=== PATIENT | female | born 1970 | race Caucasian/White ===

== ENCOUNTER 2024-11-15 05:37 | Observation (INO) | payer BC ==
[~2024-11-15] VITALS: Ht 172.7 cm; Wt 91.7 kg
[~2024-11-15 05:37] MED LIST: DAILY VITE1 EAC1 PO; LISINOPRIL-HCT1 EAC2 PO; ZYRTEC10 MG PO
[2024-11-15 06:14] LABS: BASOPHILS 0.7 % (0-2); HEMATOCRIT 40.8 % (35.0-50.0); HEMOGLOBIN 14.1 g/dL (12.0-18.0); LYMPHOCYTES 11.8 % (24-44); MCH 30.6 (27-36); MCHC 34.7 g/dl (30-36); MCV 88.3 fl (81-99); MONOCYTES 7.2 % (0-12); NEUTROPHILS 77.3 % (39-80); PLATELET COUNT 237 K/uL (140-440); RBC 4.62 M/ul (4.3-5.7); RDW 13.5 (10.5-15.0)
[2024-11-15] MEDS ORDERED: MORPHINE SULFATE 4 MG/ML VIAL IV ONE (06:15)
[2024-11-15] MEDS ORDERED: FAMOTIDINE 20 MG/ 2 ML VIAL IV ONE (06:15)
[2024-11-15] MEDS ORDERED: LACTATED RINGER'S 1,000 ML IV SCH (06:30)
[2024-11-15 06:37] LABS: ALBUMIN 3.6 g/dL (3.4-5.0); ALBUMIN/GLOBULIN RATIO 1.16 (1.1-2.4); ANION GAP 10.7 (7-21); BILIRUBIN, TOTAL 0.7 mg/dL (0.2-1.0); BUN/CREATININE RATIO 17.17 (6.0-28.6); CALCIUM 9.2 mg/dL (8.5-10.1); CREATININE, SERUM 0.99 mg/dL (0.55-1.02); MAGNESIUM 1.9 mg/dL (1.8-2.4); POTASSIUM 3.7 mmol/L (3.5-5.1); PROTEIN, TOTAL 6.7 g/dL (6.4-8.2)
[2024-11-15 06:45] LABS: INR 1.01 (0.80-1.30); PROTIME 12.9 Sec (11.2-14.2)
[2024-11-15 06:47] LABS: PARTIAL THROMBOPLASTIN TIME 29.4 Sec (22.9-41.3)
[2024-11-15] MEDS ORDERED: levoFLOXacin 500 MG PIGGYBACK IV ONE (07:45)
[2024-11-15] MEDS ORDERED: LIDOCAINE HCL 2% 5 ML SDV ONE (08:23)
[2024-11-15] MEDS ORDERED: propofoL 200 MG/20 ML VIAL ONE (08:23)
[2024-11-15] MEDS ORDERED: KETOROLAC TROMETHAMINE 30 MG/ML VIAL ONE (08:23)
[2024-11-15] MEDS ORDERED: SUGAMMADEX SODIUM 200 MG/2 ML ML ONE (08:23)
[2024-11-15] MEDS ORDERED: ROCURONIUM BROMIDE 50 MG/5 ML SYR ONE (08:23)
[2024-11-15] MEDS ORDERED: ACETAMINOPHEN 1,000 MG/100 ML VIAL ONE (08:23)
[2024-11-15] MEDS ORDERED: fentaNYL citrate 100 MCG/2 ML VIAL ONE (08:23)
[2024-11-15] MEDS ORDERED: ondansetron HCL 4 MG/2 ML VIAL ONE (08:23)
[2024-11-15] MEDS ORDERED: SUCCINYLCHOLINE IN 0.9% NACL 200 MG/10 ML SYRINGE ONE (08:23)
[2024-11-15] MEDS ORDERED: DEXAMETHASONE SOD PHOS 4 MG/ML VIAL ONE (08:23)
[2024-11-15] MEDS ORDERED: MIDAZOLAM HCL 2 MG/2 ML VIAL ONE (08:24)
[2024-11-15] MEDS ORDERED: dexmedeTOMIDine HCl 200 MCG/2 ML VIAL ONE (08:25)
[2024-11-15] MEDS ORDERED: LIDOCAINE HCL 2% 20 MG/ML VIAL INJ ONE (08:25)
[2024-11-15] MEDS ORDERED: KETAMINE in NS 50 MG/5 ML SYR ONE (08:25)
[2024-11-15] MEDS ORDERED: LACTATED RINGER'S 1,000 ML IV ONE (09:23)
[2024-11-15] MEDS ORDERED: SEVOFLURANE 250 ML BTL INH ONE (09:24)
[2024-11-15] MEDS ORDERED: PHENYLEPHRINE HCL 10 MG/ML VIAL ONE (09:24)
[2024-11-15] MEDS ORDERED: PROCHLORPERAZINE EDISYLATE 10 MG/2 ML VIAL IV PRN ×6 (10:15→11:00)
[2024-11-15] MEDS ORDERED: HYDROmorphone HCL 1 MG/ML SYR IV PRN ×2 (10:15→11:00)
[2024-11-15] MEDS ORDERED: ondansetron HCL 4 MG/2 ML VIAL IV PRN ×6 (10:15→11:00)
[2024-11-15] MEDS ORDERED: fentaNYL citrate 50 MCG/ML SDV IV PRN ×2 (10:15→11:00)
[2024-11-15] MEDS ORDERED: droPERidol 5 MG/2 ML VIAL IV PRN ×2 (10:15→11:00)
[2024-11-15] MEDS ORDERED: NALOXONE HCL 0.4 MG SYR IV PRN ×2 (10:15→11:00)
[2024-11-15] MEDS ORDERED: IBLOOD GLUCOSE TEST STRIP 1 EA TEST VI PRN ×2 (10:15→11:00)
--- NOTE | 2024-11-15 10:18 | NUR ---
11/15/24 1018 Belem Méndez 1001-PT ARRIVES TO PACU ON 8L VIA MASK. PT IS NONAROUSABLE TO TACTILE STIMULI. RESP EVEN AND UNLABORED. 1004-JAW THRUST BEING DONE BY [employer]. 1008-PT RESPONDS TO VERBAL SIMTULI. JAW THRUST COMPLETE. O2 AT 8L VIA MASK. RESP EVEN AND UNLABORED. 1012-PT OPENS EYES. SHAKES HEAD NO WHEN ASKED ABOUT PAIN AND NAUSEA. RESP EVEN AND UNLABORED. 8L VIA MASK. HOB ELEVATED. PT FALLS BACK TO SLEEP EASILY.
[2024-11-15] MEDS ORDERED: ACETAMINOPHEN 650 MG SUPP PR PRN ×4 (10:30→11:00)
[2024-11-15] MEDS ORDERED: DEXTROSE 5% - LACTATED RINGERS 1,000 ML IV SCH ×4 (10:30→11:00)
[2024-11-15] MEDS ORDERED: ACETAMINOPHEN 325 MG TAB PO PRN ×4 (10:30→11:00)
[2024-11-15 10:42] VITALS: BP 96/70
--- NOTE | 2024-11-15 10:42 | NUR ---
PT TO ROOOM 109 VIA BED BY PAULINO HORTON FROM PACU. PT AWAKE, ALERT, AND ORIENTED. PT HAS 5 LAP SITES TO ABD WITH BANDAIDS CDI. PT RATES PAIN TO ABD 2/10 AND STATES IS TOLERABLE AT THIS TIME. PT PLACED ON CPOX PER POLICY. ESTEPHANIE IN TOOM. ROOM ORIENTATION COMPLETE. CALL LIGHT WITHIN REACH. REPORT RECEIVED FROM PAULINO HORTON.
[2024-11-15] MEDS ORDERED: MORPHINE SULFATE 4 MG/ML VIAL IV PRN ×4 (10:45→11:00)
[2024-11-15] MEDS ORDERED: OXYCODONE HCL 5 MG TAB PO PRN ×4 (10:45→11:00)
--- NOTE | 2024-11-15 11:05 | NUR ---
MD GIVES VERBAL ORDER TO SALINE LOCK PATIENT AT THIS TIME. ORDER PLACED.
[2024-11-15 11:45] VITALS: BP 108/61
--- NOTE | 2024-11-15 11:47 | NUR ---
PT RESTING IN BED WATCHING TV, RATES PAIN TO ABD 2/10 AND STATES IS TOLERABLE AT THIS TIME. BANDAIDS TO 5 LAP SITES CDI. IN ROOM. CALL LIGHT WITHIN REACH. NO REQUESTS AT THIS TIME.
--- NOTE | 2024-11-15 12:28 | NUR ---
MED REC COMPLETE
[2024-11-15 13:10] VITALS: BP 117/65
[2024-11-15 13:14] VITALS: BP 117/65
--- NOTE | 2024-11-15 13:14 | NUR ---
PT UP TO RESTROOM WITH SBA, STEADY ON FEET. BACK TO BED AFTER RESTROOM, VISITOR AT THE BEDSIDE.
[2024-11-15 13:47] VITALS: BP 113/74
--- NOTE | 2024-11-15 14:09 | NUR ---
FINAL SET OF POST-SURGICAL VITALS OBTAINED AND RECORDED. I&Os ALSO RECORDED. PATIENT AMBULATES FOUR LAPS IN THE HALLS WITH SUPERVISION ONLY, TOLERATES WELL. PATIENT HAS NO COMPLAINTS OF NAUSEA. REPORTS MILD PAIN, 3/10. PRN TYLENOL ADMINISTERED AND PATIENT HAS ICE PACK HELD ON HER ABDOMEN. PATIENT CLEARED TO BE INDEPENDENT IN HER ROOM AFTER STEADY AMBULATION IN THE HALLS. ENCOURAGED TO CALL IF SHE NEEDS ANYTHING. ALL 5 LAP SITES REMAIN C/D/I. PATIENT HAS NO OTHER REQUESTS, CALL LIGHT AND PERSONAL BELONGINGS IN REACH.
[2024-11-15] MEDS ORDERED: OXYCODONE HCL5 MG PO (15:07)
[2024-11-16] MEDS ORDERED: PANTOPRAZOLE SODIUM 40 MG/10 ML VIAL IV SCH ×4 (09:00)
--- NOTE | 2024-11-25 09:06 | PATH ---
[facility] [address] [place] [address] Signed THIS IS AN AMENDED REPORT SPECIMEN(S): A GALLBLADDER AND STONES SPECIMEN SOURCE: A. GALLBLADDER AND STONES CLINICAL HISTORY: Calculus cholecystitis REASON FOR AMENDMENT: This amended report is issued to correct the referring provider and delivery location. Originally reported as Dahlia Bolaños MD at [facility]; amended to Gosia Fox MD at [facility]. The diagnostic results remain unchanged. (11/23/2024) FINAL PATHOLOGIC DIAGNOSIS: Gallbladder, cholecystectomy: - Chronic calculous cholecystitis - One reactive lymph node BRP MICROSCOPIC EXAMINATION: Histologic sections of all submitted blocks are examined by light microscopy. These findings, together with the gross examination, support the pathologic diagnosis. GROSS DESCRIPTION: The specimen, labeled and designated "Palak TeresaNellie, gallbladder and stones per requisition," is received in formalin and consists of Specimen: Surgically disrupted gallbladder. Dimensions: 8.7 x 3.2 x 2.1 cm. Serosa: Elizabeth-pink and smooth. Cystic Duct: Unobstructed. Calculi: Present�yellow and botryoid to green and rounded. Mucosa: Elizabeth and velvety. Wall thickness: 0.3 cm. Lymph node: No pericystic lymph nodes are grossly identified. Additional: None. Disease Case Manager sections are submitted in (A1). AA (under the direct supervision of a pathologist) PATIENT NAME: EVON VILLAR PATHOLOGY DATE OF : 72 REPORT #: [id number] PHYSICIAN: KALEIGHKuaiyong SIMONE PCP: GERRY PIKE MD REPORT IS CONFIDENTIAL AND NOT TO BE RELEASED WITHOUT AUTHORIZATION [facility] [address] [facility] [place], [place] [address] Signed The Gross Description was prepared using a voice recognition system. The report was reviewed for accuracy; however, sound-alike word errors, addition and/or deletions may occur. If there is any question about this report, please contact Client Services. ADDITIONAL NOTES: Immunohistochemical and/or in situ hybridization studies if performed in this case included appropriate positive controls that reacted as expected. This test was developed and its performance characteristics determined by [facility]. It has not been cleared or approved by the U.S. Food and Drug Administration. The FDA has determined that such clearance or approval is not necessary. This test is used for clinical purposes. It should not be regarded as investigational or for research. [facility] is certified under the Clinical Laboratory Improvement Amendments of 1988 (CLIA) as qualified to perform high complexity clinical laboratory testing. PERFORMING LABORATORY: Technical component was performed by [facility], [address] [place] [id number] (CLIA# [id number]). Professional interpretation was performed by [facility], [address] [place] [id number] (CLIA#: [id number]). Diagnostician: Oscar Méndez MD Pathologist Diagnostician: Carolyne Durham MD Pathologist Electronically Signed 11/25/2024 Copies: ~ PATIENT NAME: EVON VILLAR PATHOLOGY DATE OF : 72 REPORT #: [id number] PHYSICIAN: VINAYAK PATHOLOGY PCP: GERRY PIKE MD REPORT IS CONFIDENTIAL AND NOT TO BE RELEASED WITHOUT AUTHORIZATION
== END 2024-11-15 16:05 | disposition home or self-care (01) ==
LOC: ED 05:37 → MS 05:39 → ED 07:51 → DS 07:51 → MS 16:05
PROVIDERS: Internal Medicine; ADMIT Surgery; ATTEND Surgery
DX: K80.12 Calculus of gallbladder with acute and chronic cholecystitis without obstruction (principal); K82.1 Hydrops of gallbladder; I10 Essential (primary) hypertension; Z88.0 Allergy status to penicillin; Z88.1 Allergy status to other antibiotic agents; Z79.899 Other long term (current) drug therapy
CPT/HCPCS: 00790; 36415; 80053; 83690; 83735; 85025; 85610; 85730; 94762; A9270; J0131; J0330; J1100; J1885; J1956; J2003; J2250; J2270; J2371; J2405; J2704; J3010; J3490; J7121

== ENCOUNTER 2024-12-23 06:49 | Day surgery (SDC) | payer BC ==
[2024-10-09 10:32] VITALS: BP 122/85
[2024-12-15 10:20] VITALS: BP 130/90
[~2024-12-23] VITALS: Ht 172.7 cm; Wt 89.0 kg
[~2024-12-23 06:49] MED LIST changes: +FLONASE ALLERG9.9 ML NAS; +LACTATED RINGER'S 1,000 ML IV SCH; +OXYCODONE HCL5 MG PO
[2024-12-23] MEDS ORDERED: LIDOCAINE HCL 1% 5 ML SDV INJ ONE (07:00)
[2024-12-23] MEDS ORDERED: IBLOOD GLUCOSE TEST STRIP 1 EA TEST VI PRN (07:00)
[2024-12-23 07:07] VITALS: BP 125/88
[2024-12-23] MEDS ORDERED: propofoL 200 MG/20 ML VIAL ONE (07:51)
[2024-12-23] MEDS ORDERED: LIDOCAINE HCL 2% 5 ML SDV ONE (07:51)
--- NOTE | 2024-12-23 09:14 | NUR ---
12/23/24 0914 Rosalie Fernandez 0957-PATIENT ARRIVED TO PACU ON RA RR EVEN. NONAROUSABLE LAYING LEFT LATERAL. IVF INFUSING. SR HR 70'S. ABDOMEN SOFT.
[2024-12-23 09:37] VITALS: BP 127/80
--- NOTE | 2024-12-24 11:08 | OR ---
[facility] [address] [place], [place] [address] Signed DATE OF OPERATION: 12/23/2024 SURGEON: Estephanie Campos DO PREOPERATIVE DIAGNOSIS: Colon cancer screening. POSTOPERATIVE DIAGNOSES: 1. Colon cancer screening with flat sessile polyps at 20 cm and 40 cm. 2. Diverticulosis of the sigmoid colon. PROCEDURE PERFORMED: Colonoscopy with biopsies of polyps at 20 and 40 cm. ANESTHESIA: IV sedation. ESTIMATED BLOOD LOSS: None. DRAINS: None. COMPLICATIONS: None. DESCRIPTION OF PROCEDURE: The patient was brought to the GI lab, placed in supine position. After induction of IV sedation by Anesthesia, the patient was placed in left lateral position and prepared for colonoscopy. Digital rectal exam was performed, essentially unremarkable. The Olympus video colonoscope was then introduced into the rectosigmoid directing through the length of the sigmoid, descending colon past the splenic flexure, transverse colon past the hepatic flexure into the ascending colon and the cecum. General exploration was then carried out as the colon was insufflated and the scope was withdrawn. The cecum and ascending colon were without intrinsic or extrinsic masses. The scope was then brought back through the hepatic flexure was essentially unremarkable. Transverse colon unremarkable. We noted no intrinsic or extrinsic masses as well. Scope past the splenic flexure, which was essentially unremarkable. Down into the descending colon, the beginning of diverticulosis was noted through the sigmoid colon. At approximately 40 cm, a flat sessile polyp was noted. Multiple biopsies were taken, passed off the Electronically Signed By: ESTEPHANIE CAMPOS DO 12/24/24 1108 PATIENT NAME: EVON VILLAR OPERATIVE REPORT DATE OF : 72 REPORT #: [id number] PHYSICIAN: ESTEPHANIE CAMPOS DO PCP: GERRY PIKE MD REPORT IS CONFIDENTIAL AND NOT TO BE RELEASED WITHOUT AUTHORIZATION [address] [address] Signed field. The sigmoid colon was noted to have some scattered diverticulosis as well. No evidence of diverticulitis was noted. The scope was brought back to 20 cm. The flat sessile polyps noted. Multiple biopsies were taken, passed off the field. No other intrinsic or extrinsic masses were appreciated. The sigmoid colon and rectosigmoid were other than this unremarkable. The scope was withdrawn. The patient tolerated the procedure well, went to recovery room in satisfactory condition. DO SEKOU Raines/MODL /[id number] Copies: ~ Electronically Signed By: ESTEPHANIE CAMPOS DO 12/24/24 1108 PATIENT NAME: EVON VILLAR OPERATIVE REPORT DATE OF : 72 REPORT #: [id number] PHYSICIAN: ESTEPHANIE CAMPOS DO PCP: GERRY PIKE MD REPORT IS CONFIDENTIAL AND NOT TO BE RELEASED WITHOUT AUTHORIZATION
--- NOTE | 2024-12-25 13:21 | PATH ---
[facility] [address] [facility] [place], [place] [address] Signed SPECIMEN(S): A COLON POLYP AT 40 CM SPECIMEN(S): B COLON POLYP AT 20 CM SPECIMEN SOURCE: A. COLON POLYP AT 40 CM B. COLON POLYP AT 20 CM CLINICAL HISTORY: Screening, diverticulosis, polyp at 40 cm FINAL PATHOLOGIC DIAGNOSIS: A. Colon, 40 cm, polypectomy - Colonic mucosa with no significant pathologic changes B. Colon, 20 cm, polypectomy - Colonic mucosa with no significant pathologic changes BRP MICROSCOPIC EXAMINATION: Histologic sections of all submitted blocks are examined by light microscopy. These findings, together with the gross examination, support the pathologic diagnosis. GROSS DESCRIPTION: A. The specimen, labeled and designated "Palak, colon polyp at 40 cm," is received in formalin and consists of one salter soft tissue fragment, 0.2 cm. Entirely submitted in (A1). B. The specimen, labeled and designated "Ogle, colon polyp at 20 cm," is received in formalin and consists of one salter soft tissue fragment, 0.3 cm. Entirely submitted in (B1). VB (under the direct supervision of a pathologist) The Gross Description was prepared using a voice recognition system. The report was reviewed for accuracy; however, sound-alike word errors, addition and/or deletions may occur. If there is any question about this report, please contact Client Services. ADDITIONAL NOTES: Immunohistochemical and/or in situ hybridization studies if performed in this case included appropriate positive controls that reacted as expected. This test was developed and its performance characteristics determined by [facility]. It has not been cleared or approved by the U.S. Food and Drug Administration. The FDA has determined that PATIENT NAME: EVON VILLAR PATHOLOGY DATE OF : 72 REPORT #: [id number] PHYSICIAN: VINAYAK NICHOLS PCP: GERRY PIKE MD REPORT IS CONFIDENTIAL AND NOT TO BE RELEASED WITHOUT AUTHORIZATION [facility] [address] [place], [place] [address] Signed such clearance or approval is not necessary. This test is used for clinical purposes. It should not be regarded as investigational or for research. [facility] is certified under the Clinical Laboratory Improvement Amendments of 1988 (CLIA) as qualified to perform high complexity clinical laboratory testing. PERFORMING LABORATORY: Technical component was performed by [facility], [address] [place] [id number] (CLIA# [id number]). Professional interpretation was performed by [facility], [address] [place] [address] (CLIA#: [id number]). Diagnostician: Oscar Méndez MD Pathologist Electronically Signed 12/25/2024 Copies: ~ PATIENT NAME: EVON VILLAR PATHOLOGY DATE OF : 72 REPORT #: [id number] PHYSICIAN: VINAYAK PATHOLOGY PCP: GERRY PIKE MD REPORT IS CONFIDENTIAL AND NOT TO BE RELEASED WITHOUT AUTHORIZATION
== END 2024-12-23 09:45 | disposition home or self-care (01) ==
LOC: DS 06:49
PROVIDERS: ATTEND Surgery
PROC: 0DBN8ZX Excision of Sigmoid Colon, Via Natural or Artificial Opening Endoscopic, Diagnostic (ICD-10-PCS; principal; 2024-12-23 08:45)
DX: Z12.11 Encounter for screening for malignant neoplasm of colon (principal); K57.30 Diverticulosis of large intestine without perforation or abscess without bleeding; I10 Essential (primary) hypertension; Z91.011 Allergy to milk products; K80.00 Calculus of gallbladder with acute cholecystitis without obstruction; Z88.0 Allergy status to penicillin; Z88.8 Allergy status to other drugs, medicaments and biological substances
CPT/HCPCS: 00812; J2003; J2704; J7121